=== PATIENT | male | born 1990 | race Caucasian/White ===

== ENCOUNTER 2016-12-20 04:35 | Inpatient (IN) | payer OTHER ==
[~2016-12-20] VITALS: Ht 172.7 cm; Wt 62.7 kg
[~2016-12-20 04:35] MED LIST: XANAX0.5 MG PO
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
--- NOTE | 2016-12-20 04:44 | NUR ---
[facility] NOW TO ER, PLACING PATIENT ON PD PAPER FOR PSYCH EVAL.
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
--- NOTE | 2016-12-20 05:01 | NUR ---
BLOODWORK OBTAINED AND SENT TO LAB ([facility], [facility], [facility]). PATIENT'S MOTHER AT BEDSIDE FOR EVAL
[2016-12-20 05:10] LABS: ABSOLUTE BASOPHIL COUNT 0.1 /CUMM (0.0-0.2); ABSOLUTE EOSINOPHIL COUNT 0.3 /CUMM (0.0-0.7); ABSOLUTE GRANULOCYTE CT 9.7 /CUMM (1.4-6.5); ABSOLUTE LYMPH COUNT 2.3 /CUMM (1.2-3.4); ABSOLUTE MONOCYTE COUNT 1.5 /CUMM (0.10-0.60); BASOPHIL % 0.4 % (0.0-2.0); EOSINOPHIL % 2.2 % (0-5); GRANULOCYTE % 70.4 % (42.2-75.2); MEAN CORPUSCULAR HGB 30.9 PG (27.0-31.0); MEAN CORPUSCULAR HGB CONC 33.9 G/DL (33.0-37.0); MEAN PLATELET VOLUME 8.4 FL (7.4-10.4); PLATELET COUNT 213 /CUMM (130-400); RBC DISTRIBUTION WIDTH 12.8 % (11.5-14.5); RED BLOOD CELL CT 3.96 /CUMM (4.70-6.10); WHITE BLOOD CELL COUNT 13.8 /CUMM (4.8-10.8)
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
--- NOTE | 2016-12-20 06:24 | NUR ---
PATIENT TAKEN TO ROOM 14 AT THIS TIME W/ HIS MOTHER, AWAITING INITIAL CRISIS EVAL THIS AM. PATIENT AWARE OF NEED FOR URINE SPECIMEN, PATIENT REPORTS STILL NO URGE TO VOID DESPITE DRINKING 1.5 PITCHERS OF WATER. EDMUND IBARRA AT BEDSIDE SPEAKING W/ PATIENT AND PROVIDING UPDATE.
--- NOTE | 2016-12-20 07:30 | NUR ---
PT NOTED TO BE SLEEPING. RR WNL.
--- NOTE | 2016-12-20 09:43 | NUR ---
Crisis eval pending UDS results
--- NOTE | 2016-12-20 12:00 | NUR ---
CONTINUES TO AWAIT CRISIS EVAL. Informed waiting has been performed.
--- NOTE | 2016-12-20 13:18 | NUR ---
PT DEMANDING TO SPEAK TO SOMEONE PER SITTER AT THIS TIME, WENT DOWN TO SPEAK TO PT, PT STATING "I WAS TOLD LAST PM I WOULD BE SEEN BY CRISIS AT 9AM AND ITS 1 NOW, WHERE ARE THEY" EXPLAINED TO PT THAT WE NEEDED TO WAIT FOR URINE SAMLE WHICH WASNT OBATINED UNTIL THIS AM DELAYING HIS CRISIS EVAL. PT AWARE THERE IS ONE PATIENT IN FRONT OF HIM TO BE SEEN AND THEN HE WILL SEE CRISIS. PT SITTING ON STRETCHER. SITTER REMAINS PRESENT AT THIS TIME. WILL CTM
--- NOTE | 2016-12-20 15:00 | NUR ---
CRISIS AT BEDSIDE.
--- NOTE | 2016-12-20 16:51 | NUR ---
CRISIS TO BEDSIDE TO MAKE PT AWARE HE WILL BE ADMITTED. PT BECAME AGITATED AND REQUESTING TO LEAVE. PT RAN OUT OF HER AND INTO ER PARKING LOT. ORDER 7 CALLED, SECURITY AND MULTIPLE STAFF MEMBERS OUTSIDE. PT BROUGHT BACK INSIDE. TO BEDSIDE. PT PLACED IN 4 POINT RESTRAINTS AT THIS TIME.
--- NOTE | 2016-12-20 17:44 | NUR ---
PT REMAINS IN RESTRAINTS AT THIS TIME. REG RESP RATE NOTED. SITTER REMAINS PRESENT. GOOD CIRCULATION NOTED TO ALL EXTREMITIES. WILL CTM
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
--- NOTE | 2016-12-20 18:56 | NUR ---
PT TAKEN OUT OF RESTRAINTS AT THIS TIME. PT SITTING UP EATING DINNER TRAY, PT AGREED TO STAY AND BE ADMITTED TO [facility]. SITTER REMAINS PRESENT. WILL CTM
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
--- NOTE | 2016-12-20 20:53 | NUR ---
REPORT CALLED FOR CABRERA FRANCOIS IN [facility]
--- NOTE | 2016-12-20 20:54 | NUR ---
[employer] CALLED FOR TRANSPORT
[2016-12-20 22:18] VITALS: BP 119/74
[2016-12-20 23:36] VITALS: BP 114/52
[2016-12-21] VITALS (8 sets, daily range): BP systolic 92–103; BP diastolic 52–59
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
--- NOTE | 2016-12-21 01:43 | Admission Certification ---
Admission Certification Certification Statement - As attending physician, I certify that at the time of - admission, based on clinical presentation, severity of - symptoms, need for further diagnostic testing and - therapeutic interventions, and risk of adverse outcomes - without in-hospital treatment, in my clinical assessment, - this patient requires an acute hospital stay for a minimum - of two nights or longer. I have also considered psychsocial - factors such as support system, advanced age, financial - issues, cognitive issues, and failed out-patient treatments, - past re-admission history, safety of patient, and lack of - compliance as applicable. Specific rationale supporting this admission is: Psychosis, delusions.
--- NOTE | 2016-12-21 06:04 | NUR ---
SLEPT WELL, NO COMPLAINTS OFFERED
--- NOTE | 2016-12-21 12:02 | SOCIAL WORKER PROG NOTE PSYCH ---
Social Work Progress Note Progress Note SW met with patient for the first time today. Patient found sleeping in bed late this morning. Patient reports feeling withdrawal from opiates currently and physically does not feel well. Patient denies SI/HI/AH/VH at present. Mood appears flat and affect congruent with mood. Patient has agreed to have his mother come in for a family meeting. This literary writer attempted to call and voicemail was full and other number listed did not work. This literary writer will follow up again this afternoon and also ask patient if there is a better number to reach. Patient had minimal to say to this literary writer and made poor eye contact during our meeting. He will be encouraged to try to refrain from staying in bed during the day and attend groups on the unit.
--- NOTE | 2016-12-21 12:04 | SOCIAL WORKER TX PLAN PSYCH ---
Treatment Plan - Please Document: - Evidence that there is ongoing collaboration between - the patient and the interdisciplinary team, - including the patient's active participation and - responsibility for engaging in the treatment regimen, - and that the treatment plan is individualized and - relevant to the patient's conditions. - Treatment plan should reflect documentation indicating - that all active therapeutic efforts are included. Strengths/Capabilities: Supportive Mother and stable housing Physical Limitations (Interventions): None Noted Patient Identified Trmt Goals: "I want to stop using drugs." Discharge Plan: IOP Problem/Goals #1 Problem #1: polysubstance abuse/dependence Goal (Short Term): 1) Refrain from substance use 2) Identify 3 triggers for use 3) Identify 3 sober supports 4) Identify 3 coping skills Goal (Assisted): I will have family meeting on unit during my hospitalization I will attend all AA groups on unit I will Identify 3 coping skills for cravings to use I will set up aftercare for dual diagnosis program to address both mental health and substance abuse concerns Interventions: Learn ways to manage cravings to use substances accordingly and identify coping skills to prevent relapse from occurring due to anxious/depressed feelings. Modalities: Encourage groups, education on addiction, provide CBT treatment, family meeting. 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
--- NOTE | 2016-12-21 13:59 | SOCIAL WORKER PROG NOTE PSYCH ---
Social Work Progress Note Progress Note Confirmed family meeting for tomorrow at 11am.
--- NOTE | 2016-12-21 14:48 | NUR ---
PT IS ISOLATIVE. HE ATTENDED ONLY ONE GROUP AND STATED HIS GOAL WAS TO GET ACCUSTOMED TO THE UNIT. HE REFUSED ALL THE OTHER GROUPS TODAY AND WAS IRRITABLE WITH STAFF AT TIMES. PT IS ENCOURAGED TO ATTEND THE GROUPS. HE DENIED SUICIDAL THOUGHTS
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
--- NOTE | 2016-12-21 21:19 | NUR ---
PT IS CALM, COOPERATIVE WITH STAFF AND PEERS, AND COMPLIANT WITH UNIT RULES. PT IS MOSTLY IN [place], INTERACTING WELL WITH OTHERS. MOOD IS STABLE, AFFECT IS EUTHYMIC TO FULL RANGE, COMMUNCIATION IS ORGANIZED AND APPEARS NORMAL IN ALL RESPECTS, AND APPETITE IS NORMAL. PT DENIES SI AT THIS TIME.
[2016-12-22] VITALS (8 sets, daily range): BP systolic 92–96; BP diastolic 52–57
--- NOTE | 2016-12-22 06:17 | NUR ---
PT APPEARED TO SLEEP.
--- NOTE | 2016-12-22 12:06 | CP SOUTH PROGRESS NOTE PSYCH ---
Psych (Inpt) Progress Note Progress Note Include the following elements, when applicable: Involvement in the active treatment of the patient with behavioral observations of the patient and the patient's response to the treatment. Review of the ongoing treatment process in the context of the treatment plan. Indication of how multi-disciplinary staff members are carrying out the treatment plan. Plans for future interventions and recommendations for revision of the treatment plan. Liaison with other physicians/providers. Progress Note: PSYCHIATRIST NOTE (FAMILY MEETING), 12/22/2016: I discussed this patient's initial progress to date, current mental status, treatment and discharge planning with staff team today in the daily morning ABHISHEK and Gela Limon LCSW, and I met together with patient and his mother in a family session. Patient's mother appeared quite upset initially during the meeting but had to be drawn out to disclose verbally just how dismayed and at wit's end she is at this point over her son's polydrug use disorders and lack of any initiative to make his way in life; she is very tired and feels she will not be able to sustain the current situation with patient living at home with her "but doing nothing but drugs. She is frustrated and ready to finally put limits on patient. Despite his mother's expressed concerns patient remained generally nonchalant and appearing to be in little subjective or objective distress; one might have thought that mother was the patient, not he. Patient is doing well with detox from heavy heroin abuse using tapering doses of methadone, down to 40mg today with plan to halve dose tomorrow, 12/23/2016, to 15mg and complete detox by the weekend, if possible, tapering away low dose clonidine aw well. I am also tapering away low dose Ativan with date of last dose being 12/24/2016.
--- NOTE | 2016-12-22 13:26 | NUR ---
PT SPENT MOST OF TIME IN BED. HAD A FMILY MEETING AND GOT TO PUT ON OWN CLOTHES. WAS IRRIATED WITH STAFF WHEN THEY GAVE ORDERS TO THROW AWAY HIS PAPER SCRUBS THAT HE THREW ON THE NURSES STATION AND REFUSED TO STUDENT ACCOUNTS MANAGER. STARTED TO WALK BEHIND NURSES STATION TO THROW AWAY, WAS REDIRECTED, AND TOLD NOT TO CHANGE HIS CLOTHES IN THE MILEU. COMPLIANT WITH RELUCTANCE. PT DENIES SI AT THIS TIME.
--- NOTE | 2016-12-22 13:29 | SOCIAL WORKER PROG NOTE PSYCH ---
Social Work Progress Note Progress Note Patient had family meeting today with his mother and Dr. Anderson. Patients mother expressed concern over patients substance abuse and still being his primary support at the age of 26. Patient reported that he wants to refrain from drug use going forward and is willing to go to IOP. Patient reported that he has been out of the work force since and primarily has not returned due to depression. He reported a past breakup being extremely troubling for him and his major trigger for depression. Patient shared a desire to start working again but recognizes the need to obtain sobriety first and foremost. Patients mother was pleased to hear patient agree to IOP. Patient has agreed to remain in the hospital for the remainder of the week/weekend in order to succesfully complete detox from opiates while in the hospital.
--- NOTE | 2016-12-22 18:31 | NUR ---
Sean's mother called and reported patient called her to report upon discharge Sean plans to use benzos and marijuana illegally. Mother reports she will not live that way and "WE" should be looking for placement because the patient will not be welcome back to her home. She would like social work and treating doctor to know. Patient also demanded to use piano during shift. Patient attempted to stare down staff when limit set. Patient encouraged to attend groups and participate in plan of care.
--- NOTE | 2016-12-22 20:49 | NUR ---
PT IS CALM, COOPERATIVE WITH STAFF AND PEERS AND COMPLAINT WITH UNIT RULES. PT IS OFTEN IN MILIEU, INTERACTING WELL WITH OTHERS. MOOD IS STABLE, AFFECT APPEARS EUTHYMIC TO FULL RANGE, COMMUNICATION IS ORGANIZED AND APPEARS NORMAL IN ALL RESPECTS, AND APPETITE IS NORMAL. PT DENIES SI AT THIS TIME.
[2016-12-23] VITALS (8 sets, daily range): BP systolic 94–137; BP diastolic 53–75
--- NOTE | 2016-12-23 06:27 | NUR ---
PT IS A MED SEEKING, MINIMALLY MOTIVATED YOUNG MAN. HE WOULD "LIKE TO PLAY THE PIANO" FOR THE PATIENTS. PT GRUDGINGLY ATTENDING GROUPS.
--- NOTE | 2016-12-23 13:06 | NUR ---
PT HAS BEEN ISOALTIVE IN ROOM FOR MOST OF SHIFT. PT DID NOT COME OUT FOR 0800 VITALS AFTER BEING ASKED MANY TIMES. PT DID COME OUT FOR 1200 AND ATE LUNCH. PT IS NOT ATTENDING ANY GROUPS. PT MOOD IS STABLE WITH A CONSTRICTED AFFECT. PT INTERACTS WELL WITH OTHER WHILE IN COMMUNITY. PT DENIES SI TOUGHTS.
--- NOTE | 2016-12-23 14:30 | SOCIAL WORKER PROG NOTE PSYCH ---
Social Work Progress Note Progress Note Patient and I had a rather long meeting today. This short story writer was informed by night staff that patients mother informed them that patient stated he plans to use benzos and marijuana when he discharges and she will not allow him home with this behavior. I approached patient about this and questioned where this came from. Patient reported that he is interested in being prescribed benzodiazepines by a private prescriber and also being put on medicinal marijuana for panic attacks. Patient stated that he does not know how he will be prescribed medicinal marijuana and has no actual plan at this time to start it. I informed patient that it would be very difficult for a prescriber to prescribe him benzodiazepines given his substance abuse hx. Patient was initially resistent to this conversation and stated that if this is the case then he would not share his substance abuse hx with his new prescriber. This short story writer discussed the risks involved with not being truthful to a new prescriber in addition to the potential of becoming addicted to another substance given his hx of addiction. Patient understood but still had some hesitation accepting this discussion. He was also informed that he would not be able to participate in IOP if he were to be prescribed benzodiazepines from an outside prescriber since he will be in dual IOP. Patient has agreed to consider the option of a non addictive anti- anxiety medication for his panic attacks/ anxiety. Patient stated that he is unsure if he wants to attend IOP at this time, but he is going to think about it and consider if he is open to an alternative to benzodiazepines to treat his anxiety. Patient did state that he refuses to go to rehab at this time and is welcome to return home as long as he is prescribed medications from a doctor.
--- NOTE | 2016-12-23 18:52 | CP SOUTH PROGRESS NOTE PSYCH ---
Psych (Inpt) Progress Note Progress Note Include the following elements, when applicable: Involvement in the active treatment of the patient with behavioral observations of the patient and the patient's response to the treatment. Review of the ongoing treatment process in the context of the treatment plan. Indication of how multi-disciplinary staff members are carrying out the treatment plan. Plans for future interventions and recommendations for revision of the treatment plan. Liaison with other physicians/providers. Progress Note: PSYCHIATRIST NOTE, 12/23/2016: I discussed this patient's progress to date, current mental status, treatment and discharge planning with staff team today in the daily morning ITTM and also met with him again myself in individual session. Patient presenting euthymic, in no acute distress, appearing comfortable and without complaints. I asked him about how his mother is feeling about him coming home tomorrow. He insisted that he had no intention of using benzodiazepines or Marijuana upon his return home, that what he said had been misinterpreted, he and his mother have spoken about it and now things are good between them and asserted much of the improvement was due to his convincing mother that he is "sick and tired" of what drugs are doing to him, of chasing withdrawals with more drugs and wants to "get off everything." Patient is doing well with heroin and benzodiazepine detoxes, both of which will be completed by tomorrow afternoon, 12/24/2016, barring any unforseen complications. Patient expressed his interest in following up in the [facility] "and if I find it is not for me we'll work out a referral to somehere else."
--- NOTE | 2016-12-23 22:15 | NUR ---
PT WAS ACTIVE MORE SO DURING THE EVENING SHIFT AND DID ATTEND WRAP UP GROUP. PT WANTED TO PLAY PIANO FOR HIS PEERS BUT WAS TOLD NO BECAUSE HE DID NOT HOLD UP HIS "END OF THE DEAL" TO ATTEND GROUPS AND BE ACTIVE THROUGHOUT THE DAY. VS ARE STABLE AND DENIES ANY SI/HI TO THIS MHW.
[2016-12-24] VITALS (8 sets, daily range): BP systolic 98–119; BP diastolic 54–89
--- NOTE | 2016-12-24 11:40 | SOCIAL WORKER PROG NOTE PSYCH ---
Social Work Progress Note Progress Note Met with Sean this morning. He was up in the morning for breakfast, then went back to bed. He was difficult to awaken, but did meet with me eventually. He stated he is hoping to go home. He stated he is "thinking about attending the [facility]." Discussed the importance of trying something new, in terms of treatment. He stated he has never done an IOP. He tended to minimize his drug use., stating "I only smoke 1 bag of Heroin at a time, I will never overdose." Discussed his overconfidence and lack of insight with him. He stated 'The only reason I am here is because of my girlfriend, she called the police on me and said I was suicidal." Discussed how he can continue to do the same thing or again try someting different and get help (treatment). Sean was polite but motivation is minimal. He denied SI/HI, no psychosis.
--- NOTE | 2016-12-24 13:39 | NUR ---
PT HAS BEEN WITHDRAWN AND SLEEPING IN BED MAJORITY OF DAY. PT HAS BEEN NON COMPLIANT WITH TREATMENT, REFUSING TO GO TO GROUPS AND ONLY GETTING UP WHEN PROMPTED. PT HAS A FLAT AND EUTHYMIC AFFECT. PT DENIES SI AT THIS TIME, NO COMPLAINTS OFFERED. VITALS ARE STABLE, APPETITE IS GOOD.
--- NOTE | 2016-12-24 14:53 | SOCIAL WORKER PROG NOTE PSYCH ---
Social Work Progress Note Progress Note Spoke with patients mother, Nely Gaitan, this AM on the phone. Patients mother called concerned that patient would be discharging the hospital today and was concerned about his aftercare plan. She reported not feeling patient was stable enough to return home and fearful that he would relapse over the weekend. I informed her that we will keep him over the weekend and we recommend that he go directly to IOP intake on Tuesday AM. I also informed her of patients resistence to IOP and wanting to be prescribed benzodiazepines. I stressed the importance of not being prescribed another addictive medication, such as benzodiazepines, with his hx of dependence/abuse. Patients mother understood and agreed. She inquired if we would start him on anything while in the hospital. I informed her that most likely he will be started on something to stabalize his anxiety when he gets to IOP but potentially could be started here if the doctor found it to be necessary. She initially was interested in having a family meeting today but we talked for a great amount of time and I answered most of her concerns and questions over the phone conversation. She is in support of patient remaining in the hospital over the weekend and stepping down to IOP on Tuesday.
--- NOTE | 2016-12-24 17:33 | CP SOUTH PROGRESS NOTE PSYCH ---
Psych (Inpt) Progress Note Progress Note Include the following elements, when applicable: Involvement in the active treatment of the patient with behavioral observations of the patient and the patient's response to the treatment. Review of the ongoing treatment process in the context of the treatment plan. Indication of how multi-disciplinary staff members are carrying out the treatment plan. Plans for future interventions and recommendations for revision of the treatment plan. Liaison with other physicians/providers. Progress Note: PSYCHIATRIST NOTE, 12/24/2016: I discussed this patient's progress to date, current mental status, treatment and discharge planning with staff team today in the daily morning ITTM and also met with him again myself in individual session. Patient has been experiencing more/stronger opioid withdrawal symptoms with attemt to rapidly taper away methadone; this places him at high risk for relapse over the coming weekend, and his mother is also very concerned about the latter possibility/ probability and coming at a time when he appears to be demonstrating more motivation to get off drugs and get on with his life ("this life is no fun...") I plan to extend the methadone taper, giving a total of 2.5mg 4x/day today, 7.5mg tomorrow, 12/25/2016, 5mg on 12/26/2016 and final 2.5mg on 12/27/2016 with discharge directly to the [facility] expected at that time. Patient still is not showing evidence of clinical depression but anxiety has been a contributor to drug abuse; I have left PRN's of hydroxyzine, Neurontin and low dose Seroquel but will not continue the prescription of Ativan, though patient continues on CIWA monitoring.
--- NOTE | 2016-12-24 22:00 | NUR ---
PT IS CALM, COOPERATIVE WITH STAFF AND PEERS, AND COMPLIANT WITH UNIT RULES. PT IS OFTEN IN MILIEU, INTERACTING WELL WITH OTHERS. MOOD IS STABLE, AFFECT IS EUTHYMIC TO FULL RNAGE, COMMUNICATION IS ORGANIZED AND APPEARS NORMAL IN ALL RESPECTS, AND APPETITE IS NORMAL. PT DENIES SI AT THIS TIME.
--- NOTE | 2016-12-24 22:10 | NUR ---
Pt is out in the community mood is stable. Compliant with the staff during kris shift, Pt was reported to be med seeking early of the day. Pt vital signs are stable appetite is good. Will continue to monitor the pt overnight.
[2016-12-25] VITALS (7 sets, daily range): BP systolic 106–115; BP diastolic 53–68
--- NOTE | 2016-12-25 06:54 | NUR ---
PATIENT SLEPT ALL NIGHT.
--- NOTE | 2016-12-25 14:16 | NUR ---
PT IS CALM, COOPERATIVE WITH STAFF, NO ISSUES OR COMPLAINTS REPORTED OR OBSERVED, NOT COMPLETELY COMPLIANT WITH TREATMENT I.E., NO ATTENDING GROUPS TODAY, MOOD STABLE WITH FULL RANGE AFFECT, VITAL SIGNS STABLE.
--- NOTE | 2016-12-25 17:21 | CP SOUTH PROGRESS NOTE PSYCH ---
Psych (Inpt) Progress Note Progress Note Include the following elements, when applicable: Involvement in the active treatment of the patient with behavioral observations of the patient and the patient's response to the treatment. Review of the ongoing treatment process in the context of the treatment plan. Indication of how multi-disciplinary staff members are carrying out the treatment plan. Plans for future interventions and recommendations for revision of the treatment plan. Liaison with other physicians/providers. Progress Note: Chart reviewed, patient progress discussed with nursing staff. Interviewed patient this afternoon. Pleasant, cooperative, says that "I'm not feeling dope sick today ". Says his mood was improving, looking for to discharge, says he might be visited by family member today. Also says he might play piano today. Denies SI or HI. Denies any other acute complaints currently. Vitals reviewed and within normal limits. No new laboratory results today. MSE: Adequately groomed man with long hair, cooperative with interview with good eye contact, no psychomotor retardation or agitation. Speech was normal limits. Mood was "getting better ", affect was euthymic, non-labile, congruent. Thought process was logical and linear, thought content was within normal limits. Denies SI or HI, denies perceptual disturbances, cognition was grossly intact, insight and judgment were fair. A/P: Continue present management as per primary team.
--- NOTE | 2016-12-25 22:06 | NUR ---
PT IS CALM, COOPERATIVE WITH STAFF AND PEERS, AND COMPLIANT WITH UNIT RULES. PT IS MOSTLY IN MILIEU, INTERACTING WELL WITH STAFF/PEERS. MOOD IS STABLE, AFFECT APPEARS EUTHYMIC TO FULL RANGE, COMMUNICATION IS ORGANIZED AND APPEARS NORMAL IN ALL RESPECTS, AND APPETITE IS NORMAL. PT DENIES SI AT THIS TIME.
[2016-12-26] VITALS (8 sets, daily range): BP systolic 99–123; BP diastolic 49–85
--- NOTE | 2016-12-26 05:21 | NUR ---
PT WENT TO BED EARLY AND APPEARED TO SLEEP WELL.
--- NOTE | 2016-12-26 11:05 | CP SOUTH PROGRESS NOTE PSYCH ---
Psych (Inpt) Progress Note Progress Note Include the following elements, when applicable: Involvement in the active treatment of the patient with behavioral observations of the patient and the patient's response to the treatment. Review of the ongoing treatment process in the context of the treatment plan. Indication of how multi-disciplinary staff members are carrying out the treatment plan. Plans for future interventions and recommendations for revision of the treatment plan. Liaison with other physicians/providers. Progress Note: Chart reviewed, patient progress discussed with nursing staff. Interviewed patient this am. Pleasant, cooperative, says that he didn't sleep well last night and asks for sleeping aid. Says his mood was improving, looking forward to discharge. Denies SI or HI. Denies any other acute complaints currently. Vitals reviewed and within normal limits. No new laboratory results today. MSE: Adequately groomed man with long hair, cooperative with interview with limited eye contact, no psychomotor retardation or agitation. Speech was normal limits. Mood was "tired", affect was euthymic, non-labile, congruent. Thought process was logical and linear, thought content was within normal limits. Denies SI or HI, denies perceptual disturbances, cognition was grossly intact, insight and judgment were fair. A/P: Add PRN trazodone for tonight. Continue present management as per primary team.
--- NOTE | 2016-12-26 11:39 | NUR ---
PT IS CALM AND COOPERATIVE. MOOD IS STABLE WITH A FLAT AND EUTHYMIC AFFECT. PT DENIES SI AT THIS TIME, NO COMPLAINTS OFFERED. PT HAS BEEN WITHDRAWN AND ISOLATIVE IN ROOM; SLEEPING MOST OF THE DAY. PT PRESENT ON UNIT FOR MEALS AND VITALS. PT INTERACTING WITH OTHERS WHEN OOB. VITALS ARE STABLE, APPETITE IS GOOD.
--- NOTE | 2016-12-26 22:42 | NUR ---
PT IS CALM, COOPERATIVE WITH STAFF AND PEERS, AND COMPLIANT WITH UNIT RULES. PT IS OFTEN IN MILIEU, INTERACTING WELL WITH OTHERS. MOOD IS STABLE, AFFECT IS FULL RANGE, COMMUNICATION IS ORGANIZED AND APPEARS NORMAL IN ALL RESPECTS, AND APPETITE IS NORMAL. PT DENIES SI AT THIS TIME.
--- NOTE | 2016-12-27 06:14 | NUR ---
PT APPEARED TO SLEEP WELL.
[2016-12-27 08:09] VITALS: BP 125/60
[2016-12-27 08:11] VITALS: BP 125/60
--- NOTE | 2016-12-27 10:55 | SOCIAL WORKER PROG NOTE PSYCH ---
Social Work Progress Note Progress Note Patient to discharge the hospital today. Patient denies SI/HI/AH/VH at present and is able to contract for safety. Patient has agreed to attend IOP at and has intake scheduled today at 11:15am. Patient reports some ambivalence to the program but is open to trying the program at this time. Patients mother is aware and will be picking him up after intake today and allowing him to return home. Patient reports looking forward to returning home today and plans to refrain from substances going forward.
[2016-12-27] MEDS ORDERED: NICORELIEF2 MG PO (10:58)
--- NOTE | 2016-12-27 11:16 | NUR ---
WILL BE DISCHARGED TODAY TO [facility] [place] [facility] [place] MOOD IS STable, full range of affect. denied thoughts of self harm when asked. given education on suicide prevention, brief psycotic episode.
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
--- NOTE | 2016-12-27 12:46 | CP SOUTH PROGRESS NOTE PSYCH ---
Psych (Inpt) Progress Note Progress Note Include the following elements, when applicable: Involvement in the active treatment of the patient with behavioral observations of the patient and the patient's response to the treatment. Review of the ongoing treatment process in the context of the treatment plan. Indication of how multi-disciplinary staff members are carrying out the treatment plan. Plans for future interventions and recommendations for revision of the treatment plan. Liaison with other physicians/providers. Progress Note: PSYCHIATRIST NOTE (DISCHARGE), 12/27/2016: I discussed this patient's progress to date, current mental status, treatment and discharge plans with staff team today in the daily morning ITTM and also met with him again in individual session prior to discharging him seamlessly to intake with [facility] this morning at 11:15am. Patient has also been strongly urged to become active in attending local AA/NA meetings and acquire a sponsor and communicate with him frequently going forward. Patient was also given an appointment card for the next scheduled [facility] on 01/05/2017 at 4pm, facilitated by Keysha Sequeira LCSW. Patient had his last tapering dose of methadone, 2.5mg, scheduled for this morning. Patient is currently euthymic, future-oriented, happy to be returning to his mother's home and determined to be less of a burden to and more of a help for her. He has been sleeping and eating well and energy/activity level has picked up somewhat recently. There is no current evidence of suicidal or homicidal ideation, plans, intent or impulses and patient is well aware of his safety plan should he ever in future come to believe that he is at risk to harm himself or others. I urged patient to continue to utilize nicotine gum, 2mg OTC, to help him with smoking cessation.
== END 2016-12-27 11:29 | DRG 773 ==
LOC: ERH 04:35 → CP SOUTH 18:53 → EDPENDDISTM 18:53 → ENPENDDIS 18:53 → ERHI 18:53 → CP SOUTH 21:06
PROVIDERS: Pediatrics; ADMIT Psychiatry & Neurology Addiction Medicine
DX: F11.929 Opioid use, unspecified with intoxication, unspecified (principal); F13.929 Sedative, hypnotic or anxiolytic use, unspecified with intoxication, unspecified
CPT/HCPCS: 80307; 90834; G0480